=== PATIENT | male | born 1950 | race Caucasian/White ===

== ENCOUNTER → 2017-02-27 | Day surgery (SDC) | payer MEDICARE, OTHER ==
[2017-02-27] VITALS (10 sets, daily range): BP systolic 119–146; BP diastolic 69–106; PULSE 61–86; RESP 12–21; O2SAT 95–98
[~2017-02-27] VITALS: Ht 172.7 cm; Wt 90.2 kg
[~2017-02-27] MED LIST: ASPI-973 PO; CeFAZolin 2 Gm/50 mL D5W Duplex Bag IV ONE; CeFAZolin Inj 2 GM in IV Premix 1 EACH IV ONE; Dexamethasone 4 mg/mL Inj IVPUSH PRN; Dexamethasone 4 mg/mL Inj ONE; EPHEDrine Sulfate 50 mg/mL Inj IVPUSH PRN; HYDROcodone-APAP 5-325 mg Tablet PO PRN; Ketamine 10 mg/mL 20 mL Inj ONE; Lactated Ringer's 1,000 ML IV ONE; Lactated Ringer's 1,000 ML IV SCH; MetoCLOpramide 5 mg/mL 2 mL Inj IVPUSH PRN; Ondansetron 2 mg/mL 2 mL Inj IVPUSH PRN; Ondansetron 2 mg/mL 2 mL Inj ONE; Phenylephrine 10,000 mCg/mL Inj IVPUSH PRN; Propofol 10,000 mCg/mL 20 mL Inj ONE; TAMS0.4C98 PO; fentaNYL-PF 50 mCg/mL 2 mL Inj ONE
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
[2017-02-27] MEDS: HYDROmorphone 1 mg/mL Inj IVPUSH PRN ×4 (17:28→18:06)
[2017-02-27] MEDS: fentaNYL-PF 50 mCg/mL 2 mL Inj IVPUSH PRN ×2 (17:28→17:52)
[2017-02-27] MEDS: Lactated Ringer's 500 ML IV PRN ×2 (17:57→19:40)
--- NOTE | 2017-02-27 18:17 | PCM.ANEP1 ---
Post Anesthesia PACU Phase 1 Assessment Vital Signs Vital Signs Date Time Temp Pulse Resp B/P Pulse Ox O2 Delivery O2 Flow Rate FiO2 02/27/17 18:10 36.8 61 15 119/72 96 Nasal Cannula 2 02/27/17 18:07 69 15 129/69 96 Nasal Cannula 2 02/27/17 17:59 65 15 144/85 96 Nasal Cannula 4 02/27/17 17:47 82 21 127/86 96 Room Air 02/27/17 17:33 86 18 126/106 97 Room Air 02/27/17 17:20 36.2 85 20 146/89 96 Room Air 02/27/17 12:46 36.3 64 12 123/91 95 Room Air Anesthetic Administered: GA Level of Alertness: Sleepy, easy to arouse FUENTES's with Equal Strength: Yes Pain: No Nausea or Vomiting: No CV Function & Hydration Stable: Yes Airway Device: natural Oxygen Delivery: Simple Mask Lungs: Clear to Auscultation, Normal Air Movement Dermatome Level: Full Sensation PACU Phase 2 Assessment Complications: No Follow up Care: No Patient Instructions Provided: N/A Jf Castellanos MD Feb 27, 2017 18:17
--- NOTE | 2017-02-27 22:07 | OP ---
[address] [address] OPERATIVE REPORT PATIENT: JAMILA RAMOS : 1950 MR#: [id number] ADMIT: 02/27/2017 JOB ID: [id number] DATE OF SURGERY: 02/27/2017 SURGEON: Yessenia Cavazos MD GLASS SILVERER: None. PREOPERATIVE DIAGNOSIS(ES): Urinary retention. POSTOPERATIVE DIAGNOSIS(ES): 1. Urinary retention. 2. Bladder stone. PROCEDURES PERFORMED: 1. Cystoscopy and transurethral resection of prostate. 2. Laser cystolitholapaxy (bladder stone 1.5-2 cm). FINDINGS: 1. Very large median lobe with hypertrophic lobes of prostate. 2. Bladder stone. 3. +4 trabeculation. 4. Bilateral orthotopic ureteral orifices. ANESTHESIA: General. ESTIMATED BLOOD LOSS: 10 mL. DRAINS: An 18-Barb[employer] coude catheter to the bladder. SPECIMENS: Prostate chips and bladder stones. COMPLICATIONS: None. CONDITION: Stable. INDICATION FOR PROCEDURE: The patient is a 66-year-old, gentle urinary retention. He now presents for the aforementioned procedure. DESCRIPTION OF PROCEDURE: After informed consent, the patient was taken to the operating room. A time-out was performed, identifying correct patient, surgical site, procedure. General anesthesia was smoothly induced. He was given intravenous antibiotics just prior to the start of the procedure. His genitals were then prepped and draped in usual sterile fashion. A 26-Barb[employer] resectoscope was applied to the patient's urethra and advanced into the bladder as the bladder was drained. The resection commenced from the median lobe which was quite large. The right and left lobes were also then resected. An [employer] evacuator was used throughout the procedure to remove the prostate chips. At the end of the resection, there was excellent hemostasis. The bladder stone was then treated with a 1000 micron laser fiber wire and was broken into little pieces. It was subsequently drained. The resectoscope was then replaced and there appeared to be excellent hemostasis and all the chips had been removed. An 18-[employer] coude catheter was applied to the patient's urethra and into the bladder. 20 cc of sterile water were used to inflate the balloon and it was set to dependent drainage. The patient was then reversed from general anesthesia and taken to PACU in good and stable condition. [facility]
--- NOTE | 2017-03-01 16:01 | PATH ---
SURGICAL PATHOLOGY Attending Physician:Kerri Cavazos, CASE STATUS: Signed Out PATIENT NAME: JAMILA RAMOS PID: [id number] : 1950 DATE COLLECTED:02/27/2017 00:00 SPECIMEN: Prostate, Chips CLINICAL HISTORY: URINARY RETENTION 1). PROSTATE CHIPS AND BLADDER STONE FINAL DIAGNOSIS: 1.PROSTATE CHIPS AND BLADDER STONE, TRANSURETHRAL RESECTION OF PROSTATE (WEIGHT 45 GRAMS): BENIGN PROSTATIC TISSUE WITH STROMAL AND GLANDULAR HYPERPLASIA. NEGATIVE FOR ATYPIA AND MALIGNANCY. ICD10 N40.1 GROSS DESCRIPTION: The specimen is received in one formalin filled container labeled with the patient's name, sublabeled "prostate chips and bladder stone" and consists of multiple portions of tissue and blood which aggregate to 8.0 x 7.0 x 2.0 CM. Specimen weighs 45 g in total. Rep. sections are submitted in 10 cassettes. 02/28/2017DC MICRO DESCRIPTION: See diagnosis. ICD-9 CODES: CPT CODES: 1: 32435 Electronically Signed Out Kerri Baez MD [facility] [address], [place] [address] Technical component performed at [facility], [address] [place] [address] Ave[address], [place], [address]
== END | disposition home or self-care (01) ==
LOC: SAS 11:59
PROVIDERS: ATTEND Urology
DX: N21.0 Calculus in bladder (principal); N32.89 Other specified disorders of bladder; N40.1 Benign prostatic hyperplasia with lower urinary tract symptoms; R33.8 Other retention of urine; R97.20 Elevated prostate specific antigen [PSA]; M19.90 Unspecified osteoarthritis, unspecified site; Z87.891 Personal history of nicotine dependence; Z79.82 Long term (current) use of aspirin; Z87.442 Personal history of urinary calculi
CPT/HCPCS: 52317; 52601; J0690; J1100; J1170; J2250; J2405; J3010; J7120